=== PATIENT | male | born 1930 | race Caucasian/White ===

== ENCOUNTER 2018-03-11 03:32 | Inpatient (IN) ==
--- NOTE | 2018-03-11 03:44 | ED ---
HPI General Chief Complaint: Neuro Symptoms/Deficit Stated Complaint: Medical Time Seen by Provider: 03/11/18 03:38 Source: patient and EMS Mode of arrival: EMS Limitations: altered mental status History of Present Illness HPI narrative: 87-year-old male patient presents to the ER today brought in by EMS because his found him with bleeding from the left ear and patient was looking disoriented. When EMS got there, he was having trouble following commands, was disoriented, and they thought that maybe his left hand was weaker than his right hand. However, the patient is improving rapidly according to EMS. Initially he was having difficulty answering questions but he is getting better according to EMS. He was last seen normal about 4 hours prior to EMS evaluation. He currently denies any chest pains, headaches, or other symptoms. He last remembered going to bed and did not notice any problems. He denies any falls. Stroke alert was called on field. Modifying Factors: None Associated Signs & Symptoms: Stroke alert, altered mental status Risk Factors: Elderly Related Data Home Medications Medication Instructions Recorded Confirmed amlodipine-valsartan 1 tab PO DAILY 03/11/18 03/11/18 aspirin [Aspir-81] 81 mg PO DAILY 03/11/18 03/11/18 atorvastatin 40 mg PO DAILY 03/11/18 03/11/18 Allergies Allergy/AdvReac Type Severity Reaction Status Date / Time Sulfa (Sulfonamide Allergy Severe Hives Unverified 03/11/18 03:36 Antibiotics) Review of Systems ROS Unobtainable ROS Unobtainable: unobtainable due to mental status PMFSH History History Provided By: Patient Medical History Medical History Pacemaker (Acute) HTN (hypertension) (Acute) Heart disease (Acute) Surgical History Surgical History Hx of CABG (Acute) Social History Social History Substance History: No History of Abuse Smoking Status: Former smoker Tobacco Type: Cigarettes How Often Do You Have a Drink Containing Alcohol: Monthly or less Recent Travel in [facility] within the Last 8 Weeks: No Recent Out of Country Travel within the Last 8 Weeks: No Exam Narrative Exam Narrative: GENERAL: Well-developed elderly white male patient currently in moderate distress. Awake, alert, disoriented. SKIN: Focused skin assessment warm/dry. HEAD: Atraumatic. Normocephalic. EYES: Pupils equal and round. No scleral icterus. No injection or drainage. ENT: No nasal bleeding or discharge. Mucous membranes pink and moist. EARS: There is notable blood in the left pinna and ear canal with notable ruptured TM on the left side. NECK: Trachea midline. No JVD. CARDIOVASCULAR: Regular rate and rhythm. No murmur appreciated. RESPIRATORY: No accessory muscle use. Clear to auscultation. Breath sounds equal bilaterally. GASTROINTESTINAL: Abdomen soft, non-tender, nondistended. Hepatic and splenic margins not palpable. MUSCULOSKELETAL: No obvious deformities. No clubbing. No cyanosis. No edema. NEUROLOGICAL: Awake and alert. No obvious cranial nerve deficits. Motor grossly within normal limits. Normal speech. No pronator drift. PSYCHIATRIC: Appropriate mood and affect; insight and judgment poor. Course Initial Documented Vital Signs Temperature 98.2 F 03/11/18 03:38 Pulse Rate 88 03/11/18 03:38 Respiratory Rate 18 03/11/18 03:38 Blood Pressure 171/76 H 03/11/18 03:38 Pulse Oximetry 95 03/11/18 03:38 Last Documented Vital Signs Temperature 98.2 F 03/11/18 03:42 Pulse Rate 83 03/11/18 04:34 Respiratory Rate 16 03/11/18 04:34 Blood Pressure 150/65 H 03/11/18 04:34 Pulse Oximetry 95 03/11/18 04:34 NIH Stroke Scale NIH Stroke Scale Level of Consciousness: 0-Alert Orientation Questions: 0-Answers both correct Responds to Commands: 0-Both tasks correct Gaze Eye Movement: 0-Horizontal movement WNL Visual Holly: 0-No visual field defect Facial Movement: 0-Normal Motor Functions Arm LEFT: 0-No drift Motor Functions Arm RIGHT: 0-No drift Motor Functions Leg LEFT: 0-No drift Motor Functions Leg RIGHT: 0-No drift Limb Ataxia: 0-No ataxia Sensory Loss: 0-No sensory loss Best Language: 0-Normal Extinction or Inattention Sensory: 0-Absent Total: 0 Medical Decision Making MDM Narrative Medical decision making narrative: Case was discussed with Dr. Townsend and he does not feel that the patient would be a good TPA candidate. He states that he also does not require a CTA for this patient. Symptoms are more indicative of a global process, altered mental status rather than a focal stroke. Aspirin was given after the CAT scan was negative. Lab work is fairly unremarkable. At this point, my plan would be to admit him for further evaluation. Case is discussed with Dr. Bryson for admission. Medical Screen Exam Complete: Yes Emergency Medical Condition: Yes Differential Diagnosis Differential Diagnosis: CVA versus ICH versus metabolic issues Lab Data Lab results reviewed: Yes I reviewed the patient's lab results. Result diagrams: 03/11/18 03:38 Lab Results 03/11/18 03/11/18 03/11/18 Range/Units 03:38 03:38 03:38 WBC 9.8 (4.0-11.0) th/mm3 RBC 4.46 L (4.50-5.90) mil/mm3 Hgb 15.3 (13.0-17.0) gm/dL POC Hgb (Calc) 14.6 (13.0-17.0) g/dL Hct 43.9 (39.0-51.0) % POC Hct 43.0 (39-51.0) % MCV 98.5 (80.0-100.0) fL MCH 34.4 H (27.0-34.0) pg MCHC 34.9 (32.0-36.0) % RDW 13.9 (11.6-17.2) % Plt Count 204 (150-450) th/mm3 MPV 8.1 (7.0-11.0) fL Neut % (Auto) 80.2 H (16.0-70.0) % Lymph % (Auto) 12.2 (9.0-44.0) % [place] % (Auto) 6.0 (0.0-8.0) % Eos % (Auto) 1.3 (0.0-4.0) % Baso % (Auto) 0.3 (0.0-2.0) % Neut # (Auto) 7.9 H (1.8-7.7) th/mm3 Lymph # (Auto) 1.2 (1.0-4.8) th/mm3 [place] # (Auto) 0.6 (0.0-0.9) th/mm3 Eos # (Auto) 0.1 (0.0-0.4) th/mm3 Baso # (Auto) 0.0 (0.0-0.2) th/mm3 WBC Differential . Differential Comment Auto diff final PT 9.6 L (9.8-11.6) sec INR 0.9 Ratio APTT 30.1 (23.4-31.7) sec Fibrinogen 518 H (227-377) mg/dL POC Sodium 138 (137-144) mmol/L POC Potassium 3.9 (3.6-5.0) mmol/L POC Chloride 103 (102-111) mmol/L POC BUN 15 (5-21) mg/dL POC Creatinine 1.1 (0.6-1.3) mg/dL POC Glucose 148 H (68-110) mg/dL Total Creatine Kinase 216 (39-308) U/L Troponin I 0.02 (0.02-0.05) ng/mL Imaging Data Attestation: I personally reviewed and interpreted this imaging study as follows : Radiologist's impression: Head CT 03/11/18 03:38 CONCLUSION: 1. Negative exam for age with no evidence of hemorrhage, mass or visualized stroke. . These findings were called to the ER DrZina By Dr. Walters at 0349 hours. Discharge Plan Discharge Disposition Patient Disposition: 30 Still Patient Discharge Condition Condition: Stable Discharge Details Anticipated Discharge Date: 03/11/18 Diagnosis: Transient cerebral ischemia Physicians Team ED Provider: Fallon Lal Primary Care Provider: Maxine Coates Rxs /Orders / Referrals /Forms Prescriptions: No Action atorvastatin 40 mg Tablet 40 mg PO DAILY RF: 0 aspirin [Aspir-81] 81 mg Tablet,Delayed Release (Dr/Ec) 81 mg PO DAILY RF: 0 amlodipine-valsartan 5-320 mg Tablet 1 tab PO DAILY RF: 0 Discharge Interventions Interventions: Vital Signs Last Done: 03/11/18 04:34 Status ED Status: With Doctor
--- NOTE | 2018-03-11 03:52 | CT ---
EXAM DATE: 03/11/2018 3:47 AM EST AGE/SEX: 87 years / Male INDICATIONS: Stroke Alert. Altered mental status, confusion. CLINICAL DATA: This is the patient's initial encounter. Patient reports that signs and symptoms have been present for 1 day and indicates a pain score of 0/10. MEDICAL/SURGICAL HISTORY: None. None. RADIATION DOSE: 56.35 CTDI (mGy) COMPARISON: No prior exams available for comparison. TECHNIQUE: CT of the head without contrast. Using automated exposure control and adjustment of the mA and/or kV according to patient size, radiation dose was kept as low as reasonably achievable to ob tain optimal diagnostic quality images. DICOM format image data is available electronically for revi ew and comparison. FINDINGS: Cerebrum: The ventricles are normal for age. No evidence of midline shift, mass lesion, hemorrhage or acute infarction. No extraaxial fluid collections are seen. Posterior Fossa: The cerebellum and brainstem are intact. The 4th ventricle is midline. The cerebe llopontine angle is unremarkable. Extracranial: The visualized portion of the orbits is intact. Skull: The calvaria is intact. No evidence of skull fracture. CONCLUSION: 1. Negative exam for age with no evidence of hemorrhage, mass or visualized stroke. . These findings were called to the ER DrZina By Dr. Walters at 0349 hours. Electronically signed by: Dinesh Walters MD 03/11/2018 3:51 AM EST
[2018-03-11 03:54] LABS: Baso % (Auto) 0.3 % (0.0-2.0); Eos # (Auto) 0.1 th/mm3 (0.0-0.4); Eos % (Auto) 1.3 % (0.0-4.0); Hematocrit 43.9 % (39.0-51.0); Hemoglobin 15.3 gm/dL (13.0-17.0); Lymph # (Auto) 1.2 th/mm3 (1.0-4.8); Lymph % (Auto) 12.2 % (9.0-44.0); Mean Corpuscular HGB Conc 34.9 % (32.0-36.0); Mean Corpuscular Hemoglobin 34.4 pg (27.0-34.0); Mean Corpuscular Volume 98.5 fL (80.0-100.0); Mean Platelet Volume 8.1 fL (7.0-11.0); Mono # (Auto) 0.6 th/mm3 (0.0-0.9); Neut # (Auto) 7.9 th/mm3 (1.8-7.7); Neut % (Auto) 80.2 % (16.0-70.0); Platelet Count 204 th/mm3 (150-450); Red Blood Count 4.46 mil/mm3 (4.50-5.90); Red Cell Distribution Width 13.9 % (11.6-17.2); White Blood Count 9.8 th/mm3 (4.0-11.0)
[2018-03-11 04:13] LABS: Activated Partial Thrombo Time 30.1 sec (23.4-31.7); INR 0.9 Ratio; Prothrombin Time 9.6 sec (9.8-11.6)
[2018-03-11] MEDS: Sod Chloride 0.9% Inj 1,000 ML IV.CONT SCH ×2 (04:13→17:39)
[2018-03-11 04:14] LABS: Troponin I 0.02 ng/mL (0.02-0.05)
[2018-03-11] MEDS ORDERED: Aspirin 325 MG Tablet PO ONE (04:17)
[2018-03-11] MEDS ORDERED: Dextrose 50% in Water 50 ML Vial IV.PUSH PRN (04:45)
--- NOTE | 2018-03-11 05:05 | XR ---
EXAM DATE: 03/11/2018 4:24 AM EST AGE/SEX: 87 years / Male INDICATIONS: Stroke alert. CLINICAL DATA: This is the patient's initial encounter. Patient reports that signs and symptoms have been present for 1 day and indicates a pain score of 0/10. MEDICAL/SURGICAL HISTORY: Cardiovascular disease. CABG. Pacemaker. COMPARISON: [facility] [place], CHEST SINGLE AP, 09/07/2014. . FINDINGS: A single AP supine portable view of the chest was obtained and again demonstrates the patient is stat us post median sternotomy. The left subclavian transvenous pacer remains in place. There is mild hazy opacity again noted in the left midlung. The heart size is mildly prominent. There is no effusion. CONCLUSION: 1. Hazy opacity is noted in the left mid lung. This may represent focal scarring or recurrent infilt rate. 2. Status post median sternotomy for bypass grafting procedure. Electronically signed by: Dinesh Walters MD 03/11/2018 5:04 AM EST
[2018-03-11 05:09] LABS: Amphetamine Screen,Urine Neg (Neg); Barbiturate Screen,Urine Neg (Neg); Cannabinoid Screen,Urine Neg (Neg); Cocaine Screen,Urine Neg (Neg)
[2018-03-11 05:10] LABS: Opiate Screen,Urine Neg (Neg)
[2018-03-11 05:15] LABS: Bacteria,Urine Rare /hpf; Bilirubin,Urine Negative (Negative); Clarity,Urine Hazy (Clear); Color,Urine Yellow (Yellw/Straw); Glucose,Urine (UA) Negative (Negative); Hyaline Casts,Urine 3 /lpf (0-3); Leukocyte Esterase,Urine Moderate (Negative); Mucus,Urine Few /lpf (Occasional); Nitrite,Urine Negative (Negative); Specific Gravity,Urine 1.011 (1.002-1.035); Squamous Epithelial Cell,Urine <1 /hpf (0-5)
--- NOTE | 2018-03-11 08:13 | P.HP ---
History of Present Illness Primary Care Physician: Maxine Coates MD Chief Complaint: Altered mental Status History of Present Illness: This is a pleasant 87 y/o male because his found him with bleeding from the left ear and patient was looking disoriented. When EMS got there, he was having trouble following commands, was disoriented, and they thought that maybe his left hand was weaker than his right hand. However, the patient is improving rapidly according to EMS. Initially he was having difficulty answering questions but he is getting better according to EMS. He was last seen normal about 4 hours prior to EMS evaluation. He currently denies any chest pains, headaches, or other symptoms. He last remembered going to bed and did not notice any problems. He denies any falls. Stroke alert was called on field. he has Hypertension, Hyperlipidemia. CAD status post Pacemaker placement, status post CABG. Review of Systems All other systems reviewed negative except as stated in HPI [facility] - History History Provided By: Patient - Medical History Medical History: Medical History (Last Reviewed 03/11/18 @ 14:45 by Beba Matt) Pacemaker HTN (hypertension) Heart disease - Surgical History Surgical History: Surgical History (Last Reviewed 03/11/18 @ 14:45 by Beba Matt) Hx of CABG - Family History Family History: Family History (Last Updated 03/11/18 @ 17:16 by Bobby Kate MD) Other Family history of hypertension - Tobacco History Smoking Status: Former smoker Tobacco Type: Cigarettes - Alcohol History How Often Do You Have a Drink Containing Alcohol: Monthly or less - Substance Use History Substance History: No History of Abuse - Substance Use Type Marijuana Status: Sustained Remission Route Used: By Mouth, Inhalation Last Used: 50 years ago Reason for Use: Socialization - Travel History [facility] Within the Last 8 Weeks: No Recent Travel Out of the Country Within the Last 8 Weeks: No - Immunization History Tetanus Immunization: Unsure Medications and Allergies Active Medications: Active Medications Aspirin (Aspirin) 325 mg PO DAILY [facility] Atorvastatin Calcium (Lipitor) 40 mg PO DAILY [facility] Dextrose (D50w Vial) 50 ml IV.PUSH UNSCH PRN PRN Reason: per Hypoglycemic Protocol Glucagon (Glucagon Inj) 1 mg OTHER UNSCH PRN PRN Reason: per Hypoglycemic Protocol Sodium Chloride (Ns Inj) 1,000 mls @ 70 mls/hr IV.CONT .[id number] SULAIMAN Last Admin: 03/11/18 04:13 Dose: 70 mls/hr Allergies Allergy/AdvReac Type Severity Reaction Status Date / Time Sulfa (Sulfonamide Allergy Severe Hives Unverified 03/11/18 03:36 Antibiotics) Home Medications Medication Instructions Recorded Confirmed Type amlodipine-valsartan 1 tab PO DAILY 03/11/18 03/11/18 History aspirin [Aspir-81] 81 mg PO DAILY 03/11/18 03/11/18 History atorvastatin 40 mg PO DAILY 03/11/18 03/11/18 History Exam Vital signs: Vital Signs 03/11/18 03:38 03/11/18 03:42 03/11/18 03:48 Temperature 98.2 F 98.2 F Pulse Rate 78 78 52 L Respiratory Rate 18 18 16 Blood Pressure 171/76 H 171/76 H 161/72 H Pulse Oximetry 96 96 94 L 03/11/18 03:55 03/11/18 04:02 03/11/18 04:09 Temperature Pulse Rate 61 86 84 Respiratory Rate 16 16 15 Blood Pressure 177/55 H 139/72 132/63 Pulse Oximetry 95 96 95 03/11/18 04:20 03/11/18 04:34 03/11/18 05:00 Temperature Pulse Rate 82 83 80 Respiratory Rate 16 16 16 Blood Pressure 145/71 H 150/65 H 134/66 Pulse Oximetry 96 95 03/11/18 05:15 03/11/18 05:30 03/11/18 06:15 Temperature Pulse Rate 80 74 69 Respiratory Rate 16 16 17 Blood Pressure 146/71 H 135/60 134/62 Pulse Oximetry 03/11/18 07:00 Temperature Pulse Rate 66 Respiratory Rate 18 Blood Pressure 156/64 H Pulse Oximetry 97 Intake & Output 03/10/18 03/11/18 03/11/18 18:59 06:59 18:59 Weight 71.8 kg Narrative: GENERAL: Well-developed elderly white male patient currently in moderate distress. Awake, alert, disoriented. SKIN: Focused skin assessment warm/dry. HEAD: Atraumatic. Normocephalic. EYES: Pupils equal and round. No scleral icterus. No injection or drainage. ENT: No nasal bleeding or discharge. Mucous membranes pink and moist. EARS: There is notable blood in the left pinna and ear canal with notable ruptured TM on the left side. NECK: Trachea midline. No JVD. CARDIOVASCULAR: Regular rate and rhythm. No murmur appreciated. RESPIRATORY: No accessory muscle use. Clear to auscultation. Breath sounds equal bilaterally. GASTROINTESTINAL: Abdomen soft, non-tender, nondistended. Hepatic and splenic margins not palpable. MUSCULOSKELETAL: No obvious deformities. No clubbing. No cyanosis. No edema. NEUROLOGICAL: Awake and alert. No obvious cranial nerve deficits. Motor grossly within normal limits. Normal speech. No pronator drift. PSYCHIATRIC: Appropriate mood and affect; insight and judgment poor. Results - Labs CBC & Chem 7: 03/11/18 03:38 Labs: Laboratory Results - last 24 hr 03/11/18 03/11/18 03/11/18 03:38 03:38 03:38 WBC 9.8 RBC 4.46 L Hgb 15.3 POC Hgb (Calc) 14.6 Hct 43.9 POC Hct 43.0 MCV 98.5 MCH 34.4 H MCHC 34.9 RDW 13.9 Plt Count 204 MPV 8.1 Neut % (Auto) 80.2 H Lymph % (Auto) 12.2 [place] % (Auto) 6.0 Eos % (Auto) 1.3 Baso % (Auto) 0.3 Neut # (Auto) 7.9 H Lymph # (Auto) 1.2 [place] # (Auto) 0.6 Eos # (Auto) 0.1 Baso # (Auto) 0.0 WBC Differential . Differential Comment Auto diff final PT 9.6 L INR 0.9 APTT 30.1 Fibrinogen 518 H POC Sodium 138 POC Potassium 3.9 POC Chloride 103 POC BUN 15 POC Creatinine 1.1 POC Glucose 148 H Total Creatine Kinase 216 Troponin I 0.02 Urine Color Urine Clarity Urine pH Ur Specific [place] Urine Protein Urine Glucose (UA) Urine Ketones Urine Occult Blood Urine Nitrate Urine Bilirubin Urine Urobilinogen Ur Leukocyte Esterase Urine RBC Urine WBC Ur Squamous Epith Cells Urine Bacteria Hyaline Casts Granular Casts Urine Mucus Micro UA Comment Ur Microscopic Review Urine Culture Comments Urine Comment Urine Opiates Screen Ur Barbiturates Screen Ur Amphetamines Screen U Benzodiazepines Scrn Urine Cocaine Screen U Cannabinoids Screen Blood Type Blood Type Recheck Antibody Screen 03/11/18 03/11/18 03/11/18 03:38 04:44 04:44 WBC RBC Hgb POC Hgb (Calc) Hct POC Hct MCV MCH MCHC RDW Plt Count MPV Neut % (Auto) Lymph % (Auto) [place] % (Auto) Eos % (Auto) Baso % (Auto) Neut # (Auto) Lymph # (Auto) [place] # (Auto) Eos # (Auto) Baso # (Auto) WBC Differential Differential Comment PT INR APTT Fibrinogen POC Sodium POC Potassium POC Chloride POC BUN POC Creatinine POC Glucose Total Creatine Kinase Troponin I Urine Color Yellow Urine Clarity Hazy H Urine pH 6.0 Ur Specific [place] 1.011 Urine Protein 30 H Urine Glucose (UA) Negative Urine Ketones Negative Urine Occult Blood Negative Urine Nitrate Negative Urine Bilirubin Negative Urine Urobilinogen Less than 2 Ur Leukocyte Esterase Moderate H Urine RBC 3 Urine WBC 41 H Ur Squamous Epith Cells <1 Urine Bacteria Rare H Hyaline Casts 3 Granular Casts 1 Urine Mucus Few H Micro UA Comment Culture indicated Ur Microscopic Review Not Reportable Urine Culture Comments Culture indicated Urine Comment Urine Opiates Screen Neg Ur Barbiturates Screen Neg Ur Amphetamines Screen Neg U Benzodiazepines Scrn Neg Urine Cocaine Screen Neg U Cannabinoids Screen Neg Blood Type A Positive Blood Type Recheck Not needed Antibody Screen Negative - Imaging Impressions Chest X-Ray 03/11/18 03:38 CONCLUSION: 1. Hazy opacity is noted in the left mid lung. This may represent focal scarring or recurrent infiltrate. 2. Status post median sternotomy for bypass grafting procedure. Head CT 03/11/18 03:38 CONCLUSION: 1. Negative exam for age with no evidence of hemorrhage, mass or visualized stroke. . These findings were called to the ER DrZina By Dr. Walters at 0349 hours. Caprini VTE Risk Assessment Caprini VTE Risk Assessment: Moderate/High Risk (score >= 2) Caprini Risk Assessment Model: Point Value = 1 Point Value = 2 Point Value = 3 Point Value = 5 Age 41-60 Minor surgery BMI > 25 kg/m2 Swollen legs Varicose veins or History of unexplained or recurrent spontaneous Oral contraceptives or hormone replacement Sepsis (< 1 month) Serious lung disease, including pneumonia (< 1 month) Abnormal pulmonary function Acute myocardial infarction Congestive heart failure (< 1 month) History of inflammatory bowel disease Medical patient at bed rest Age 61-74 Arthroscopic surgery Major open surgery (> 45 min) Laparoscopic surgery (> 45 min) Malignancy Confined to bed (> 72 hours) Immobilizing plaster cast Central venous access Age >= 75 History of VTE Family history of VTE Factor V Leiden Prothrombin [id number] Lupus anticoagulant Anticardiolipin antibodies Elevated serum homocysteine Heparin-induced thrombocytopenia Other congenital or acquired thrombophilia Stroke (< 1 month) Elective arthroplasty Hip, pelvis, or leg fracture Acute spinal cord injury (< 1 month) Prophylaxis Regimen: Total Risk Factor Score Risk Level Prophylaxis Regimen 0-1 Low Early ambulation 2 Moderate Order ONE of the following: *Sequential Compression Device (SCD) *Heparin 5000 units SQ BID 3-4 Higher Order ONE of the following medications: *Heparin 5000 units SQ TID *Enoxaparin/Lovenox 40 mg SQ daily (WT < 150 kg, CrCl > 30 mL/min) *Enoxaparin/Lovenox 30 mg SQ daily (WT < 150 kg, CrCl > 10-29 mL/min) *Enoxaparin/Lovenox 30 mg SQ BID (WT < 150 kg, CrCl > 30 mL/min) AND/OR *Sequential Compression Device (SCD) 5 or more Highest Order ONE of the following medications: *Heparin 5000 units SQ TID (Preferred with Epidurals) *Enoxaparin/Lovenox 40 mg SQ daily (WT < 150 kg, CrCl > 30 mL/min) *Enoxaparin/Lovenox 30 mg SQ daily (WT < 150 kg, CrCl > 10-29 mL/min) *Enoxaparin/Lovenox 30 mg SQ BID (WT < 150 kg, CrCl > 30 mL/min) AND *Sequential Compression Device (SCD) Assessment and Plan - Plan 1. TIA he was discussed with Neurology specialist Doctor Kristian he does not feel that the patient would be a good TPA candidate. He states that he also does not require a CTA for this patient. Symptoms are more indicative of a global process, altered mental status rather than a focal stroke. Aspirin was given after the CAT scan was negative. Lab work is fairly unremarkable. Awaiting for Neurology specialist consult, continue aspirin, Lovenox. PT, OT, ST. Cardiac monitoring, CTA brain and Neck. 2. Hypertension continue Home medicines 3. Hyperlipidemia continue Statins. 4. CAD status post Pacemaker placement, status post CABG. 5. UTI on Ceftriaxone, following Urine culture. DVT prophylaxis with Lovenox. Internet Project Manager consult. Code Status: Full Code. Discussed Condition With: Patient Discharge Planning: Once cleared by Neurology
[2018-03-11] MEDS: Aspirin 325 MG Tablet PO SCH ×2 (08:38→09:44)
--- NOTE | 2018-03-11 09:17 | US ---
EXAM DATE: 03/11/2018 9:08 AM EST AGE/SEX: 87 years / Male INDICATIONS: Altered mental status with bleeding of the left ear. CLINICAL DATA: This is the patient's initial encounter. Patient reports that signs and symptoms have been present for 1 day and indicates a pain score of 0/10. MEDICAL/SURGICAL HISTORY: Cardiovascular disease. Hypertension. Pacemaker. CABG. COMPARISON: [facility], [place] CAROTID ARTERIES, 08/11/2014. . VELOCITY PARAMETERS: ICA/CCA Ratio: Right 0.85 , Left 3.54 ICA: Right 93 cm/sec, Left 192 cm/sec CCA: Right 98 cm/sec, Left 54 cm/sec ECA: Right 80 cm/sec, Left 196 cm/sec Vertebral: Right 45 cm/sec antegrade, Left 53 cm/sec antegrade FINDINGS: Right Carotid: Mild arteriosclerotic plaque is visualized.The waveforms are within normal limits. Left Carotid: There is elevation of the left ICA to CCA ratio and peak systolic velocity of the left ICA suggestive of 50-69% stenosis. CTA of the carotids may be helpful for more accurate evaluation o f luminal stenosis. Moderate arteriosclerotic plaque is visualized. The waveforms are within normal l imits. Other: None. CONCLUSION: 1. Right Internal Carotid Artery: No hemodynamically significant stenosis. 2. Left Internal Carotid Artery:Elevation of the left ICA to CCA ratio and peak systolic velocity of the left ICA suggestive of 50-69% stenosis. CTA of the carotids may be helpful for more accurate elysia luation of luminal stenosis. Electronically signed by: Sergio Reynolds MD 03/11/2018 9:16 AM EST
--- NOTE | 2018-03-11 09:23 | MB ---
cc: Anne-Marie Servin MD DATE: 03/11/2018 REASON FOR CONSULTATION: Possible stroke. Change in mental status. HISTORY OF PRESENT ILLNESS: This is an 87-year-old man who comes in after his found him bleeding from the left ear, looking disoriented. EMS arrived to the house, he was having trouble following commands, confused, possibly weaker in the left hand. He improved rapidly, according to EMS. Brought in as a stroke alert. Last seen normal possibly 4 hours prior to arrival. He seems to be back to baseline. His states he is hard of hearing. He wears hearing aids, but does not have them in. He does have a history of hypertension, hyperlipidemia, heart disease, pacemaker placement about 4 years ago, and bypass surgery. He states the pacemaker was implanted by Dr. Woods. PAST MEDICAL HISTORY: As stated. PAST SURGICAL HISTORY: Bypass and pacemaker. SOCIAL HISTORY: Ex-smoker, rarely drinks. No history of any other substance abuse. ALLERGIES: SULFA. PHYSICAL EXAMINATION: VITAL SIGNS: His temperature is 98.2, his pulse 66, respiratory rate 18, blood pressure 156/64, saturating at 97% on room air. NECK: Supple. I do not appreciate any bruits. HEART: Regular. NEUROLOGIC: He is awake and alert. He knows he is at the hospital in [place], but he thought it was [place]. He is hard of hearing. His pupils are reactive. Visual aranda seem full. His face is symmetrical. Speech is intact. No dysarthria. No aphasia. Follows commands. I do not see any weakness. No drift or leg lag. Cardiology Clinical Consultant are symmetrical. DTRs are 1+. Toes withdraws. Gait is withheld at this time. Cerebellar intact. DIAGNOSTIC DATA: Labs are reviewed. Urine: 30 protein, 3 RBCs, 41 white cells, leukocyte esterase moderate. Culture indicated. Tox screen was negative. Culture is still pending. CT of the head was performed on admission and was negative for anything acute. ASSESSMENT AND PLAN: Possible transient ischemic attack. Etiology of his left ear bleeding unknown at this point in time. Recommend starting him on antiplatelet therapy. He did not receive TPA overnight from the recreation activities coordinator since the patient rapidly improved. I will get an EEG. Find out if the patient can have an MRI. If his pacemaker is MRI compatible, I will go ahead and get MRI brain, [facility] [place]. Carotid ultrasound was already done. Also check an echo, fasting lipid panel. Maintain him on aspirin therapy. PT, OT evaluation and antibiotics for his urinary tract infection. Continue current care. MD OSCAR Simon/hari , 09:05 AM , 09:11 AM
--- NOTE | 2018-03-11 11:18 | CT ---
EXAM DATE: 03/11/2018 11:07 AM EST AGE/SEX: 87 years / Male INDICATIONS: Altered mental status, bleeding from left ear. Stroke alert this morning. CLINICAL DATA: This is the patient's initial encounter. Patient reports that signs and symptoms have been present for 1 day and indicates a pain score of 3/10. MEDICAL/SURGICAL HISTORY: Hypertension. CABG. Pacemaker. RADIATION DOSE: 27.66 CTDI (mGy) ; Combined studies COMPARISON: [facility], [place] CAROTID ARTERIES, 08/11/2014. . TECHNIQUE: Volumetric scanning was performed using a multirow detector CT scanner during bolus infus ion of 95 ml Omnipaque 350 (iohexol) nonionic water-soluble contrast as a cumulative dose for multip le exams. The data was postprocessed with a variety of visualization algorithms including full-volu me maximum intensity projection, multiplanar sliding thin-slab reformation, curved-planar reformation , and surface-rendering techniques. Using automated exposure control and adjustment of the mA and/or kV according to patient size, radiation dose was kept as low as reasonably achievable to obtain opti mal diagnostic quality images. DICOM format image data is available electronically for review and co mparison. FINDINGS: Aortic Arch: There is a three-vessel origin of the great vessels from the aorta. No evidence of ost ial narrowing Right Carotid: The common carotid artery is intact. The carotid bulb has minimal calcified atherosc lerotic plaque resulting in no significant stenosis. The internal carotid artery lumen is smooth with out stenosis. The external carotid artery is intact. Left Carotid: The common carotid artery is intact. The carotid bulb demonstrates calcified atherosc lerotic plaque resulting in approximately 70% stenosis of the proximal internal carotid artery. The e xternal carotid artery is intact. Vertebrals: The vertebral arteries have a symmetric diameter. No stenotic lesions are seen. Percent stenosis is calculated using the diameter of the stenotic region over the diameter of the nor mal distal internal carotid artery. CONCLUSION: 1. Approximately 70% stenosis of the proximal left internal carotid artery secondary to calcified at herosclerotic plaques. Electronically signed by: Sergio Reynolds MD 03/11/2018 11:16 AM EST
--- NOTE | 2018-03-11 11:19 | CT ---
EXAM DATE: 03/11/2018 11:02 AM EST AGE/SEX: 87 years / Male INDICATIONS: Altered mental status, bleeding from left ear. Stroke alert this morning. CLINICAL DATA: This is the patient's initial encounter. Patient reports that signs and symptoms have been present for 1 day and indicates a pain score of 3/10. MEDICAL/SURGICAL HISTORY: Hypertension. CABG. Pacemaker. RADIATION DOSE: 27.66 CTDI (mGy) ; Combined studies [place]ISON[place] [facility] [place]. . TECHNIQUE: Volumetric scanning was performed using a multi-row detector CT scanner during bolus infu joelle of 95 ml Omnipaque 350 (iohexol) nonionic water-soluble contrast as a cumulative dose for multi ple exams. The data was post processed with a variety of visualization algorithms including full vo lume maximum intensity projection, multi-planar sliding thin slab reformation, curved planar reformat ion, and surface rendering techniques. Using automated exposure control and adjustment of the mA and /or kV according to patient size, radiation dose was kept as low as reasonably achievable to obtain o ptimal diagnostic quality images. DICOM format image data is available electronically for review and comparison. FINDINGS: There is excellent visualization of the major intracranial arteries out to the second-order branch ve ssels. There is no evidence for aneurysm, vessel truncation or stenosis, and no evidence for vascula r malformation. 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 CONCLUSION: No evidence of high-grade stenosis or aneurysm. . Electronically signed by: Ponce Henderson MD 03/11/2018 11:18 AM EST
[2018-03-11] MEDS: Enoxaparin Inj 40 MG/0.4 ML Syringe SQ SCH (17:38)
--- NOTE | 2018-03-11 20:42 | ECG ---
Date Performed: 03/11/2018 Time Performed: 03:52:23 PTAGE: 87 years EKG: ELECTRONIC VENTRICULAR PACEMAKER PACEMAKER DOES APPEAR TO BE PRESENT, THOUGH THERE IS HEAVY BASELINE ARTIFACT ABNORMAL RHYTHM ECG PREVIOUS TRACING : 09/04/2014 10.39 DOCTOR: Adrian Irby Interpretating Date/Time 03/11/2018 20:40:59
[2018-03-12] MEDS: Sod Chloride 0.9% Inj 1,000 ML IV.CONT SCH (09:48)
[2018-03-12] MEDS: Enoxaparin Inj 40 MG/0.4 ML Syringe SQ SCH (09:49)
[2018-03-12] MEDS: Aspirin 325 MG Tablet PO SCH (09:50)
--- NOTE | 2018-03-12 10:46 | P.PNIM ---
Subjective Interval history: Patient seen and examined this morning at the bedside. Patient knows name, location, and exact day of the week without hesitation. Patient reports noticing dizziness and says that he had bleeding out of his LEFT ear and was told his TM "popped" but denied hitting his head and says sounds are muffled. Never had this issue befiore Patient denied headache, new visual changes, new gait issues, or new weakness in extremities. Vitals reviewed this morning and stable. Imaging reviewed this morning and evidence of stenosis of internal carotid on LEFT side with symtpoms of weakness. Case reviewed BRIEFLY with vascular and they are willing to evaluate case if he can be transferred to [facility] with vascular as account consultant. Physical Exam Vital signs: Last Vital Signs Temp 98.2 F 03/12/18 04:00 Pulse 66 03/12/18 09:00 Resp 19 03/12/18 07:00 BP 116/60 03/12/18 04:00 Pulse Ox 94 L 03/12/18 04:00 Intake & Output 03/10/18 03/11/18 03/12/18 03/13/18 06:59 06:59 06:59 06:59 Intake Total 1340 / 1340 Output Total 1100 / 1100 Balance 240 / 240 Weight 71.8 kg 71.1 kg general: NAD, conversational HEENT: EOMI and PERRLA. no conjunctival hemorrage CVS: S1/S2. no m/r/g Resp: CTA bilaterally GI: soft, non tender, non distended, no guarding or rebound appreciated ext: No calf tenderness or edema. 2+ radial pulses bilaterally Neurology: CN 2-12 intact. V1, V2 and V3 intact. Sensation intact upper and lower extremity according to patient. Power 5/5 upper and lower extremity. No facial droop. No slurred speech. No tongee deviation. Results Labs CBC & Chem 7: 03/11/18 03:38 Imaging Imaging: Impressions Head CTA 03/11/18 00:00 CONCLUSION: No evidence of high-grade stenosis or aneurysm. . Neck CTA 03/11/18 00:00 CONCLUSION: 1. Approximately 70% stenosis of the proximal left internal carotid artery secondary to calcified atherosclerotic plaques. Assessment and Plan (1) Carotid stenosis: Code(s): I65.29 - Occlusion and stenosis of unspecified carotid artery Status: Acute (2) Urine abnormality: Code(s): R82.90 - Unspecified abnormal findings in urine Status: Acute Plan Neurology: Weakness/TIA - Neurology consulted and recommendations appreciated via EMR. - continue medical management with ASA 81mg qD, Plavix 75mg qD, and statin therapy - Patient with pacemaker which is confirmed to NOT be MRI compatible at this time. - CT angio imaging reviewed - PT/Ot recommendations appreciated - Patient passed speech eval: regular w/ thin liquids ordered ENT: Suspected ruptured tympanic membrane - will request ENT follow up given bleeding with ruptured tympanic membrane. Vascular: carotid stenosis - Carotid stenosis of 70% in patient with presentation of weakess. - vascular surgery consulted and will evaluate patient today after clinic is complete. requesting transfer back to the main hospital for evaluation. will discuss with CM team to arrange transportation. Infectious disease: suspected UTI - follow up Urine cultures and tailor abx therapy - continue emperic abx using ceftriaxone - monitor fever curve code: Full code diet: regular with thin liquids dvt ppx: lovenox dispo: medicine service plan discussed with patient at the bedside. all questions addressed. Plan also briefly discussed with nursing. Progress Note: Quality VTE Deep Vein Thrombosis/Pulmonary Embolism Present on Admission: No
[2018-03-12 11:03] LABS: Chol/HDL Ratio 2.8 Ratio; HDL Cholesterol 46.4 mg/dL (40.0-60.0)
[2018-03-12 13:56] LABS: Hemoglobin A1c 6.1 % (4.3-6.0)
[2018-03-13 08:30] LABS: Hematocrit 42.1 % (39.0-51.0); Hemoglobin 14.7 gm/dL (13.0-17.0); Mean Corpuscular HGB Conc 34.9 % (32.0-36.0); Mean Corpuscular Hemoglobin 34.3 pg (27.0-34.0); Mean Corpuscular Volume 98.4 fL (80.0-100.0); Mean Platelet Volume 8.1 fL (7.0-11.0); Platelet Count 221 th/mm3 (150-450); Red Blood Count 4.27 mil/mm3 (4.50-5.90); White Blood Count 7.9 th/mm3 (4.0-11.0)
[2018-03-13 08:36] LABS: INR 1.1 Ratio; Prothrombin Time 10.7 sec (9.8-11.6)
[2018-03-13 08:52] LABS: Calcium 8.5 mg/dL (8.5-10.1); Carbon Dioxide 28.1 meq/L (21.0-32.0); Potassium 3.7 meq/L (3.5-5.1)
[2018-03-13] MEDS: Aspirin 325 MG Tablet PO SCH (09:55)
[2018-03-13] MEDS: Enoxaparin Inj 40 MG/0.4 ML Syringe SQ SCH (09:56)
--- NOTE | 2018-03-13 12:29 | P.CONVS ---
History of Present Illness Service: vascular surgery Consult date: 03/13/18 Reason for Consult: carotid stenosis Primary Care Provider: Maxine Coates MD Chief Complaint: Altered mental Status History of Present Illness: 87 yo male who has been "acting funny" over past several days according to his . No focal neurological deficits. No stroke. Adm to hospital for stroke w /u and found on CTA to have L ICA stenosis. Pt lives at home with his , mows yard and very functional. Retired from [employer]. Review of Systems Constitutional: Denies chills Ears, Nose, Mouth, and Throat: Reports abnormal hearing, Reports ear discharge Cardiovascular: Denies chest pain Neurologic: Reports abnormal hearing, Reports restless legs, Denies abnormal speech, Denies fainting, Denies frequent falls, Denies headache(s) PMFSH - History History Provided By: Patient - Medical History Medical History: Medical History (Last Reviewed 03/13/18 @ 12:23 by Sergio Moore MD) Pacemaker HTN (hypertension) Heart disease - Surgical History Surgical History: Surgical History (Last Reviewed 03/13/18 @ 12:23 by Sergio Moore MD) Hx of CABG - Family History Family History: Family History (Last Updated 03/11/18 @ 17:16 by Bobby Kate MD) Other Family history of hypertension - Tobacco History Second Hand Smoke Exposure: No Tobacco Use In Past 30 Days: No Smoking Status: Former smoker Tobacco Type: Cigarettes - Alcohol History How Often Do You Have a Drink Containing Alcohol: Monthly or less - Substance Use History Substance History: No History of Abuse - Substance Use Type Marijuana Status: Sustained Remission Route Used: By Mouth, Inhalation Last Used: 50 years ago Reason for Use: Socialization - Travel History Recent Travel in the [employer] Within the Last 8 Weeks: No Recent Travel Out of the Country Within the Last 8 Weeks: No - Immunization History Tetanus Immunization: Unsure Medications and Allergies Active Medications: Active Medications Aspirin (Aspirin) 325 mg PO DAILY [facility] Last Admin: 03/13/18 09:55 Dose: 325 mg Atorvastatin Calcium (Lipitor) 40 mg PO DAILY [facility] Last Admin: 03/13/18 09:55 Dose: 40 mg Dextrose (D50w Vial) 50 ml IV.PUSH UNSCH PRN PRN Reason: per Hypoglycemic Protocol Enoxaparin Sodium (Lovenox Inj) 40 mg SQ DAILY [facility] Last Admin: 03/13/18 09:56 Dose: 40 mg Glucagon (Glucagon Inj) 1 mg OTHER UNSCH PRN PRN Reason: per Hypoglycemic Protocol Ceftriaxone Sodium 1,000 mg/ (Sodium Chloride) 100 mls @ 200 mls/hr IV.SIG Q24H [facility] Last Infusion: 03/12/18 15:50 Dose: Infused Non-Formulary Drug: Tobradex (Tobramycin /Dexamethasone) Opth Drops 0 each LEFT EAR TID [facility] Allergies Allergy/AdvReac Type Severity Reaction Status Date / Time Sulfa (Sulfonamide Allergy Severe Hives Unverified 03/11/18 03:36 Antibiotics) Home Medications Medication Instructions Recorded Confirmed Type amlodipine-valsartan 1 tab PO DAILY 03/11/18 03/11/18 History aspirin [Aspir-81] 81 mg PO DAILY 03/11/18 03/11/18 History atorvastatin 40 mg PO DAILY 03/11/18 03/11/18 History Physical Exam Vital Signs / I&O: Vital Signs 03/12/18 13:00 03/12/18 15:09 03/12/18 20:00 Temperature 98.2 F 97.7 F Pulse Rate 76 96 H 97 H Respiratory Rate 23 15 18 Blood Pressure 166/78 H 160/82 H Pulse Oximetry 95 98 03/13/18 00:00 03/13/18 04:00 03/13/18 08:00 Temperature 98 F 97.3 F L 97.5 F L Pulse Rate 80 77 65 Respiratory Rate 20 20 18 Blood Pressure 162/79 H 177/95 H 147/71 H Pulse Oximetry 95 94 L 97 03/13/18 12:00 Temperature 98.2 F Pulse Rate 76 Respiratory Rate 18 Blood Pressure 162/87 H Pulse Oximetry 97 Intake & Output 03/12/18 03/13/18 03/13/18 18:59 06:59 18:59 Intake Total 340 / 340 Output Total 200 / 200 Balance 140 / 140 Weight 71 kg Intake: IV 100 / 100 Rocephin Inj 1,000 MG In NS Inj 100 / 100 100 ML @ 200 mls/hr IV.SIG Q24H [facility] Rx#:[id number] Oral 240 / 240 Output: Urine 200 / 200 Neuro: alert, no focal deficits HEENT: decreased hearing anicteric sclera Neck: no JVD; trachea midline Heart: reg rate Lungs: nonlabored breathing Vascular: palpable UE pulses Extremities: ROSARIO 5/5 strength Laboratory Results - last 24 hr 03/12/18 03/12/18 03/13/18 05:10 17:54 01:37 WBC RBC Hgb Hct MCV MCH MCHC RDW Plt Count MPV PT INR Sodium Potassium Chloride Carbon Dioxide Anion Gap BUN Creatinine Estimated GFR POC Glucose 116 H 108 Random Glucose Hemoglobin A1c 6.1 H Calcium 03/13/18 03/13/18 03/13/18 07:12 07:12 07:12 WBC 7.9 RBC 4.27 L Hgb 14.7 Hct 42.1 MCV 98.4 MCH 34.3 H MCHC 34.9 RDW 14.0 Plt Count 221 MPV 8.1 PT 10.7 INR 1.1 Sodium 143 Potassium 3.7 Chloride 107 Carbon Dioxide 28.1 Anion Gap 8 BUN 18 Creatinine 0.91 Estimated GFR 79 L POC Glucose Random Glucose 97 Hemoglobin A1c Calcium 8.5 Microbiology 03/11/18 04:44 Urine Culture - Final Clean Catch Urine Enterococcus faecalis Assessment and Plan - Assessment (1) Carotid stenosis Code(s): I65.29 - Occlusion and stenosis of unspecified carotid artery Status : Acute - Plan Pt with what I think is asymptomatic L carotid stenosis. 1. CTA axial images not available but reviewed other projections. Agree with radiology interpretation of 70% stenosis. Duplex 50-79% by velocities. No hemispheric symptoms and negative CT head. 2. If truly asymptomatic, ACAS data suggests 2% annual stroke rate with medical therapy and 1% if successful CEA. Given age, I propose medical management at this time (ASA, statin). 3. Will arrange f/u in my clinic. Sergio Moore MD FACS FSVS RPVI recovery rn [facility] - Heart and Vascular Surgery at [facility] [phone]
--- NOTE | 2018-03-13 14:50 | P.PNIM ---
Subjective Interval history: Reports no headache. He feels fine. Wants to go home soon. No fevers or chills. No weakness or numbness. at bedside pulled me aside outside of the room and states yesterday he had a period of transient confusion when transferred from [facility] in the main hospital and thought he was in [place] wanting her to come quickly to get him. She requests that we continue to observe him for the next 24 hours for stability. Physical Exam Vital signs: Last Vital Signs Temp 98.2 F 03/13/18 12:00 Pulse 76 03/13/18 12:00 Resp 18 03/13/18 12:00 BP 162/87 H 03/13/18 12:00 Pulse Ox 97 03/13/18 13:15 Intake & Output 03/11/18 03/12/18 03/13/18 03/14/18 06:59 06:59 06:59 06:59 Intake Total 1340 / 1340 340 / 340 Output Total 1100 / 1100 200 / 200 Balance 240 / 240 140 / 140 Weight 71.8 kg 71.1 kg 71 kg Narrative: GENERAL: This is a well-nourished, well-developed patient, in no apparent distress. CARDIOVASCULAR: Regular rate and rhythm RESPIRATORY: Clear to auscultation. Breath sounds equal bilaterally. No wheezes , rales, or rhonchi. GASTROINTESTINAL: Abdomen soft, non-tender, nondistended. Normal active bowel sounds MUSCULOSKELETAL: Extremities without clubbing, cyanosis, or edema. NEURO: Alert & Oriented x4 to person, place, time, situation. Moves all ext x4 Results Labs CBC & Chem 7: 03/13/18 07:12 03/13/18 07:12 Labs: Microbiology 03/11/18 04:44 Clean Catch Urine Urine Culture - Final Enterococcus faecalis Assessment and Plan (1) Carotid stenosis: Code(s): I65.29 - Occlusion and stenosis of unspecified carotid artery Status: Acute Plan 87-year-old white male presents to the emergency room with periods of confusion and possible left hand weakness 1. TIA -appreciate neurology recommendations, continue with aspirin 81 mg p.o. daily and restart Plavix 75 mg p.o. daily and statin. Due to patient's pacemaker, unable to obtain MRI of the brain for further evaluation and workup. Status post OT PT and speech reevaluation Periods transient confusion yesterday evening and will continue with neurochecks q. 4, rule out recurrent TIA versus underlying urinary tract infection. 2. Left carotid stenosis of 70%status post vascular surgery evaluation with Dr. Moore who recommended continue medical management with aspirin and statin. Follow-up as an outpatient. 3. Suspected left ruptured tympanic membranestatus post ENT evaluation for outpatient follow-up. 4. Enterococcus faecalis urinary tract infectionstop Rocephin and start ampicillin 5. DVT prophylaxis Norvasc Discharge Planning: Home with patient's mental status continues to be stable. Progress Note: Quality VTE Deep Vein Thrombosis/Pulmonary Embolism Present on Admission: No _ (1) Carotid stenosis Qualifiers: Laterality:
[2018-03-13] MEDS: OPTH LEFT EAR SCH ×2 (16:03→17:01)
[2018-03-13] MEDS: TOBRADEX LEFT EAR SCH ×2 (16:03→17:01)
--- NOTE | 2018-03-13 20:50 | MP ---
cc: Pete Max MD DATE OF OPERATION: 03/13/2018 REQUESTING PHYSICIAN: Dr. Rosales REASON FOR CONSULTATION: Left ear bleeding. HISTORY OF PRESENT ILLNESS: Carlos Manuel Hernández is an 87-year-old man who appears to be in good health. He was brought to the [facility] around 4 a.m. on Thursday the . His states that he had been moaning as if he were in pain in his sleep in bed. When she awoke to assist him she noticed blood coming from his left ear. He was disoriented and possibly weak on one side. The ambulance crew was called and he was taken to the [facility] where he was admitted to the ICU. He began making rapid recovery in his alertness and weakness. He is unaware of how he could have gotten trauma to his left ear. He states he does clean his ears with a paper clip sometimes and that occasionally causes pain or a small amount of blood. His hearing is muffled at this time. He states he normally wears hearing [facility] his history of noise induced hearing loss. He does not have the hearing aids with him at this time. In discussing with him his history, he is unclear to many details of the recent past, but recalls the remote history very well. He has a history of coronary artery disease, has undergone bypass surgery, also has a history of hypertension, hyperlipidemia and has had a pacemaker placement. PHYSICAL EXAMINATION: GENERAL: On examination, he is alert and cooperative, in no apparent distress. HEAD: Normocephalic and atraumatic. There is no sign of ecchymosis around the ear. Oral cavity and oropharynx are normal. Mucous membranes are pink and moist. NECK: No nodes or masses. Larynx and trachea midline. EARS: Normal auricles bilaterally. In the left ear, there is some moist clots of blood obstructing visualization of the tympanic membrane. No sign of infection. ASSESSMENT: 1. Left ear canal trauma, possible perforation. 2. Essentially, no hearing loss. PLAN: Discussed as much as possible with Mr. Hernández and contacted his to try and clarify the history. I would like to see him as an outpatient in my office in the week after Thanksgiving to clean out his ear and provide him with a hearing test. In the meantime, he can begin tobramycin, dexamethasone drops in the left ear to prevent infection. MD MARJ Barrera/komal , 10:13 AM , 10:21 AM
[2018-03-14 08:46] VITALS: RESP 16; O2SAT 97
[2018-03-14] MEDS ORDERED: AMLODIPINE VALSARTAN PO SCH (09:00)
[2018-03-14] MEDS: TOBRADEX LEFT EAR SCH (10:14)
[2018-03-14] MEDS: Enoxaparin Inj 40 MG/0.4 ML Syringe SQ SCH (10:14)
[2018-03-14] MEDS: OPTH LEFT EAR SCH (10:14)
--- NOTE | 2018-03-14 11:20 | P.DS ---
DS: Providers Date of admission: 03/12/18 13:40 Primary care physician: Maxine Coates MD Consults: 03/11/18 03:38 Consult to Neurology Stat Consulting Provider: Anne-Marie Shaikh For STAT consult, spoke directly to:: Kristian Reason for Consultation: Brain Attack Notified:: Service Spoke with:: DEVON Date Notified:: 03/11/18 Time Notified:: 04:47 Comments:: CONFIRMED WITH PAT/POD E - DR ASHBY" SPOKE WITH DR BRIAN ALTHOUGH ED DR SPOKE WITH DR BRIAN THE CONSULT WILL GO TO DR SHAIKH WHO IS [employer] IN THE MORNING. Ordering Provider: MALINDA 03/12/18 10:38 Consult to Vascular Surgery Routine Consulting Provider: Sergio Moore Reason for Consultation: Approximately 70% stenosis of the proximal left internal carotid artery secondary to calcified atherosclerotic plaques in patient presenting with weakness and AMS which has been improved since admission. Consideration of intervention in patient symptomatic with 70% stenosis. [phone]. Consult from Sergio Salinas ( hospitalist attending) Notified:: Physician Spoke with:: Dr Moore Date Notified:: 03/12/18 Time Notified:: 10:51 Ordering Provider: FRED 03/12/18 12:10 Consult to ENT Routine Consulting Provider: Pete Max Reason for Consultation: History of dizziness found with bleeding LEFT ear and suspected ruptured tympanic membrane and also had associated LEFT sided weakness ( currently improving) Notified:: Service Spoke with:: Maya Date Notified:: 03/12/18 Time Notified:: 12:18 Ordering Provider: FRED Anticipated date of discharge: 03/14/18 Brief History from admission: This is a pleasant 87 y/o male because his found him with bleeding from the left ear and patient was looking disoriented. When EMS got there, he was having trouble following commands, was disoriented, and they thought that maybe his left hand was weaker than his right hand. However, the patient is improving rapidly according to EMS. Initially he was having difficulty answering questions but he is getting better according to EMS. He was last seen normal about 4 hours prior to EMS evaluation. He currently denies any chest pains, headaches, or other symptoms. He last remembered going to bed and did not notice any problems. He denies any falls. Stroke alert was called on field. he has Hypertension, Hyperlipidemia. CAD status post Pacemaker placement, status post CABG. DS: Diagnosis Discharge Diagnosis (1) Carotid stenosis: Status: Chronic (2) Transient cerebral ischemia: Status: Acute (3) Enterococcus UTI: Status: Acute (4) Tympanic membrane rupture: Status: Acute DS: Summary 87-year-old white male presents to the emergency room with periods of confusion and possible left hand weakness was found to have a TIA with recommendations from neurology to add Plavix to his aspirin regimen. Due to patient's pacemaker , unable to obtain MRI of the brain for further evaluation and workup. Patient was also found to have a left carotid stenosis 70% and he was evaluated by vascular surgery Dr. Moore who recommended continue medical treatment with statin and aspirin and Plavix. He was also found to have Enterococcus faecalis urinary tract infection and was initially placed on Rocephin and transition to ampicillin. Patient also has a suspected left ruptured tympanic membrane secondary to bleeding from the left ear and is status post ENT evaluation with Dr. Max who recommended follow-up to be able to cleanse the area for better visualization of the tympanic membrane. He recommended continuing eardrops to prevent infection. At this time, patient has gained maximum benefit from hospitalization is ready to be transition to home. Time Spent with Patient Total time spent providing and/or coordinating discharge services: Less than 30 minutes Quality: Stroke Last date observed well: 03/11/18 Last time observed well: 00:01 Quality: VTE Deep Vein Thrombosis/Pulmonary Embolism Present on Admission: No Exam Narrative Exam Narrative: GENERAL: This is a well-nourished, well-developed patient, in no apparent distress. CARDIOVASCULAR: Regular rate and rhythm RESPIRATORY: Clear to auscultation. Breath sounds equal bilaterally. No wheezes , rales, or rhonchi. GASTROINTESTINAL: Abdomen soft, non-tender, nondistended. Normal active bowel sounds MUSCULOSKELETAL: Extremities without clubbing, cyanosis, or edema. NEURO: Alert & Oriented x4 to person, place, time, situation. Moves all ext x4 , good motor strength 5 out of 5 bilateral upper extremity and lower extremities Results Impressions ITS Impressions Carotid Doppler Study 03/11/18 00:00 CONCLUSION: 1. Right Internal Carotid Artery: No hemodynamically significant stenosis. 2. Left Internal Carotid Artery:Elevation of the left ICA to CCA ratio and peak systolic velocity of the left ICA suggestive of 50-69% stenosis. CTA of the carotids may be helpful for more accurate evaluation of luminal stenosis. Head CTA 03/11/18 00:00 CONCLUSION: No evidence of high-grade stenosis or aneurysm. . Neck CTA 03/11/18 00:00 CONCLUSION: 1. Approximately 70% stenosis of the proximal left internal carotid artery secondary to calcified atherosclerotic plaques. Chest X-Ray 03/11/18 03:38 CONCLUSION: 1. Hazy opacity is noted in the left mid lung. This may represent focal scarring or recurrent infiltrate. 2. Status post median sternotomy for bypass grafting procedure. Head CT 03/11/18 03:38 CONCLUSION: 1. Negative exam for age with no evidence of hemorrhage, mass or visualized stroke. . These findings were called to the ER DrZina By Dr. Walters at 0349 hours. Discharge Plan Discharge Disposition Patient Disposition: Discharge Home Discharge Condition Condition: Stable Discharge Order Discharge Orders: Discharge Order (Routine); Ordered 03/14/18 Ordered By: Suzie Culver Discharge Details Anticipated Discharge Date: 03/11/18 Physicians Team Primary Care Provider: Maxine Coates Attending Provider: Suzie Culver Other Providers: Anne-Marie Shaikh ; Sergio Moore ; Pete Max Rxs /Orders / Referrals /Forms Prescriptions: New clopidogrel [Plavix] 75 mg Tablet 75 mg PO DAILY Qty: 30 RF: 0 ciprofloxacin-hydrocortisone [Cipro HC] 0.2-1 % drops,suspension 3 drp EACH EAR BID 7 Days RF: 0 amoxicillin 500 mg Capsule 500 mg PO Q8HR Qty: 18 RF: 0 Continue atorvastatin 40 mg Tablet 40 mg PO DAILY RF: 0 aspirin [Aspir-81] 81 mg Tablet,Delayed Release (Dr/Ec) 81 mg PO DAILY RF: 0 amlodipine-valsartan 5-320 mg Tablet 1 tab PO DAILY RF: 0 Referrals: Maxine Coates MD [Primary Care Provider] - See Instructions ( Please call the physician's office to book the appointment to be seen within [].) Post Discharge Care Plan Care Plan Goals: Your Health Problems: TIA and UTI Goals to Promote Your Health: * To prevent worsening of your condition * To maintain your health at the optimal level Directions to Meet Your Goals: * Take your medications as prescribed * Follow your dietary instruction * Follow activity as directed * Keep your appointments as scheduled * Take your immunizations and boosters as scheduled * If your symptoms worsen call your PCP * If no PCP go to Urgent Care or Emergency Room Smoking is dangerous to your health. Avoid second hand smoke. You may reach the 24-hour crisis hotline for domestic abuse at . Status ED Status: Left Department
[2018-03-14 13:40] VITALS: BP 125/61; PULSE 85; TEMP 97.8
== END 2018-03-14 13:41 | disposition home or self-care (01) | DRG 68 ==
LOC: NEPE 03:32 → NEDA 03:32 → PHICU 14:22 → N05 03-12 14:55
PROVIDERS: ADMIT Family Medicine; ATTEND Family Medicine
DX: Z95.0 Presence of cardiac pacemaker; Z79.82 Long term (current) use of aspirin; Z87.891 Personal history of nicotine dependence; Z95.1 Presence of aortocoronary bypass graft; Z97.4 Presence of external hearing-aid; H92.22 Otorrhagia, left ear; H72.92 Unspecified perforation of tympanic membrane, left ear; R53.1 Weakness; I25.10 Atherosclerotic heart disease of native coronary artery without angina pectoris; I65.22 Occlusion and stenosis of left carotid artery; I10 Essential (primary) hypertension; B95.2 Enterococcus as the cause of diseases classified elsewhere; N39.0 Urinary tract infection, site not specified; E78.5 Hyperlipidemia, unspecified
CPT/HCPCS: 70450; 70496; 70498; 71010; 71045; 80048; 80061; 80307; 81001; 82550; 82948; 82962; 83036; 84484; 85025; 85027; 85384; 85610; 85730; 86850; 86900; 86901; 87077; 87086; 87186; 92610; 93005; 93880; 97162; 97166; 97530; 99285; G0195; G0378; G8987; G8988; G8989; G8996; G8997; G8998; J0696; J1650; J7030; Q9967